=== PATIENT | male | born 1950 | race Caucasian/White ===

== ENCOUNTER → 2016-03-23 | Outpatient (CLI) | payer MEDICARE ==
--- NOTE | 2016-03-23 15:50 | KCIC ---
Examination: Ultrasound kidneys. HISTORY History of blood in the urine. COMPARISON None available Findings: The right kidney measures 11.4 x 4.9 x 5.2 centimeter. The left kidney measures 12.7 x 5.9 centimeters. Two cystic structures identified in the right kidney measuring 2.4 x 2.2 x 2.6 centimeters and 1.0 x 1.1 x 1.0 centimeters. The 2.4 centimeters cystic structure in the midpole of the right kidney demonstrates some echogenicity within. There is a 4.2 x 3.0 x 3.1 centimeters cyst identified in the left kidney. The urinary bladder is mildly distended. IMPRESSION Bilateral renal cysts. One of the cystic structures in the right midkidney demonstrates some echogenicity within probably debris or minimal complex renal cyst. Followup examination is recommended to document stability. Electronically signed by: Lazaro Alberto (Mar 23, 2016 15:49:36)
== END | disposition home or self-care (01) ==
LOC: KCIC US 14:31
PROVIDERS: ATTEND Internal Medicine
DX: N28.1 Cyst of kidney, acquired (principal)
CPT/HCPCS: 76770